=== PATIENT | male | born 1995 | race Caucasian/White ===

== ENCOUNTER 2016-08-03 09:21 | Emergency (ER) | payer OTHER, BC ==
[2016-08-03] MEDS ORDERED: ONDANSETRON 4 MG TAB.RAPDIS PO ONE (10:12)
[2016-08-03] MEDS ORDERED: MORPHINE SULFATE 10 MG/ML INJ IM ONE (10:12)
[2016-08-03] MEDS ORDERED: LIDOCAINE 1% INJ-PF (10 MG/ML) 30 ML SDV INJ ONE (10:14)
--- NOTE | 2016-08-03 10:16 | ER Document Report ---
ED Hand/Wrist Injury - General Mode of Arrival: Ambulatory Information source: Patient TRAVEL OUTSIDE OF THE [place] IN LAST 30 DAYS: No - HPI Patient complains to provider of: Finger injury Injury to: Small finger Onset: Just prior to arrival - General Chief Complaint: Finger Injury Stated Complaint: FINGER Injury Notes: Patient is a 21 year old male who presents to the emergency department complaining of an injury to his left pinky finger. Patient reports that he cut his finger while using a chop saw to cut a board. Patient states it is still painful. Patient does not remember his last tetanus shot. Patient is currently taking Depakote and Vyvance. Neurologist: Dr. Montgomery PCP: Dr. Sosa ([facility]) - Related Data Allergies/Adverse Reactions: amoxicillin Allergy (Verified 08/03/16 09:28) Past Medical History - General Information source: Patient - Social History Smoking Status: Current Every Day Smoker Chew tobacco use (# tins/day): No Frequency of alcohol use: None Drug Abuse: None Family History: Reviewed & Not Pertinent Patient has suicidal ideation: No Patient has homicidal ideation: No Neurological Medical History: Reports: Hx Seizures Psychiatric Medical History: Reports: Hx Attention Deficit Hyperactivity Disorder Review of Systems - Review of Systems Constitutional: No symptoms reported EENT: No symptoms reported Cardiovascular: No symptoms reported Respiratory: No symptoms reported Gastrointestinal: No symptoms reported Genitourinary: No symptoms reported Male Genitourinary: No symptoms reported Musculoskeletal: No symptoms reported Skin: See HPI, Lesions - left pinky Hematologic/Lymphatic: No symptoms reported Neurological/Psychological: No symptoms reported -: Yes All other systems reviewed and negative Physical Exam - Vital signs Interpretation: Normal - General General appearance: Appears well, Alert - HEENT Head: Normocephalic, Atraumatic - Respiratory Respiratory status: No respiratory distress - Extremities General lower extremity: Normal inspection Hand: Other - Longitudinal laceration extending from radial side of left little finger through the nail and running midline for 4 cm. Extension intact. Sensation intact. - Neurological Neuro grossly intact: Yes Cognition: Normal Orientation: AAOx4 Светлана Coma Scale Eye Opening: Spontaneous Светлана Coma Scale Verbal: Oriented Светлана Coma Scale Motor: Obeys Commands Светлана Coma Scale Total: 15 Speech: Normal - Psychological Associated symptoms: Normal affect, Normal mood - Skin Skin Temperature: Warm Skin Moisture: Dry Skin Color: Normal Course - Re-evaluation Re-evalutation: 08/03/16 11:45 PROCEEDURE: completion time 1145 Left 5th finger prepped with Sureclens. Anaesthetized with 4 mls 1% lidocaine MC block. There is a 4 cm long laceration running longitudinally over the dorsal finger starting just past the fingernail extending up to the PIP joint. The nail is completely lacerated along the middle of the nail with the laceration extending into the nail bed. There is about a 1 x 2 mm piece of the nail missing from the proximal ulnar side of the laceration. The laceration extends up over the dorsal finger but does not go into the extensor mechanism that I can ascertain. He does have good active extension at the DIP and PIP joints. The laceration was irrigated with 20 mL's of normal saline using a syringe and 25-gauge needle to direct pressure eye stream into the wound. No foreign debris was seen. The wounds were closed with 7 5-0 nylon sutures. One suture was placed in the fingertip to approximate the tip and edge of the nail bed beneath the nail. Sutures were placed through either side of the nail to approximate the nailbed. 4 sutures were placed along the wound on the dorsal finger to approximate the wound edges. Both wound edges suffered some tissue loss in that the laceration is shaped like a V. The wound was then dressed in a sterile fashion. (JUAN RIVERA) - Vital Signs Vital signs: Temp Pulse Resp BP Pulse Ox 97.7 F 90 16 127/79 H 100 08/03/16 09:28 08/03/16 09:28 08/03/16 09:28 08/03/16 09:28 08/03/16 09:28 ([facility] [facility]) (JUAN RIVERA) Discharge - Discharge Clinical Impression: Laceration of finger of left hand Qualifiers: Encounter type: initial encounter Qualified Code(s): S61.219A - Laceration without foreign body of unspecified finger without damage to nail, initial encounter Laceration of finger nail bed Qualifiers: Encounter type: initial encounter Qualified Code(s): S61.319A - Laceration without foreign body of unspecified finger with damage to nail, initial encounter Condition: Stable Disposition: HOME, SELF-CARE Additional Instructions: Hand Laceration: A laceration on the hand can present special problems. It may be difficult to keep the wound dry. Motion of the fingers can disturb the healing edges. Your work may involve exposure to damaging chemicals or water. Keep the wound clean and dry. If you can't keep the cut dry, undisturbed, and free of chemical exposure, please discuss this with the doctor. If any water or chemical gets onto the dressing, remove it, blot the wound dry, then apply a fresh bandage. Dressings should be changed every day. If you feel the stitches pulling as you move the hand, a splint or other form of protection is needed. If any signs of infection occur (swelling, redness, increasing tenderness, red streaks, tender lumps in the armpit, or fever), see the doctor immediately. KEEP THE WOUND DRESSING CLEAN AND DRY. CHANGE THE DRESSING IF IT BECOMES SOILED. TAKE THE MEDICATION PRESCRIBED. ELEVATE THE HAND ALL THE TIME. FOLLOW UP WITH DR. TORRES AT [facility] FOR SURGERY ON Saturday. CALL TODAY TO SCHEDULE AN APPOINTMENT TIME. RETURN TO THE EMERGENCY ROOM IF ANY NEW OR WORSENING SYMPTOMS. Prescriptions: Cephalexin Monohydrate [Keflex 500 mg Capsule] 500 mg PO QID #20 capsule Oxycodone HCl/Acetaminophen [Percocet 5-325 mg Tablet] 1 tab PO ASDIR PRN #15 tablet PRN Reason: Referrals: TONYA TORRES MD [ACTIVE STAFF] - 08/07/16 (CALL TODAY FOR A Saturday APPOINTMENT.) Scribe Attestation: 08/03/16 12:49 I personally performed the services described in the documentation, reviewed and edited the documentation which was dictated to the scribe in my presence, and it accurately records my words and actions. (JUAN RIVERA) Scribe Documentation - Scribe Written by Bong:: bong Villareal, 08/03/16, 1020 acting as scribe for :: Ant
[2016-08-03] MEDS ORDERED: CEPHALEXIN 250 MG CAPSULE PO ONE (11:47)
[2016-08-03] MEDS ORDERED: OXYCODONE-ACETAMINOPHEN 5-325 MG TABLET PO ONE (12:48)
[2016-08-03 13:04] VITALS: BP 133/87
== END 2016-08-03 13:05 | disposition home or self-care (01) ==
LOC: ER 09:21
PROC: 0HQGXZZ Repair Left Hand Skin, External Approach (ICD-10-PCS; principal; 2016-08-03)
DX: S61.219A Laceration without foreign body of unspecified finger without damage to nail, initial encounter (principal); S61.319A Laceration without foreign body of unspecified finger with damage to nail, initial encounter; F17.210 Nicotine dependence, cigarettes, uncomplicated; W45.8XXA Other foreign body or object entering through skin, initial encounter
CPT/HCPCS: 99283; 73140; 12042; S0119

== ENCOUNTER 2016-08-03 20:30 | Emergency (ER) | payer OTHER, BC ==
[2016-08-03 20:36] VITALS: BP 141/73
[2016-08-03] MEDS ORDERED: OXYCODONE-ACETAMINOPHEN 5-325 MG TABLET PO ONE (21:12)
== END 2016-08-04 00:58 | disposition left against medical advice (07) ==
LOC: ER 20:30
DX: Z53.9 Procedure and treatment not carried out, unspecified reason (principal); S61.217A Laceration without foreign body of left little finger without damage to nail, initial encounter; X58.XXXA Exposure to other specified factors, initial encounter

== ENCOUNTER → 2017-06-07 | Outpatient (CLI) | payer BC ==
--- NOTE | 2017-06-07 12:07 | RADIOLOGY REPORT (SQ) ---
EXAM DESCRIPTION: CT ABD/PELVIS COMBO COMPLETED DATE/TIME: 06/07/2017 11:49 am REASON FOR STUDY: R31.0 GROSS HEMATURIA R31.0 GROSS HEMATURIA COMPARISON: None. TECHNIQUE: CT scan of the abdomen and pelvis performed with and without intravenous contrast, and wi thout oral contrast. Contrasted imaging performed helical scanning technique and dynamic intravenous contrast injection. Images reviewed with lung, soft tissue, and bone windows. Reconstructed coronal a nd sagittal MPR images reviewed. Delayed images for evaluation of the urinary system also acquired. A ll images stored on PACS. All CT scanners at this facility use dose modulation, iterative reconstruction, and/or weight based d osing when appropriate to reduce radiation dose to as low as reasonably achievable (ALARA). [facility]: Dose Right [facility]: CareDose [facility]: Dose Right [facility]: Teradose 4D [facility]: Jalousier CONTRAST TYPE AND DOSE: contrast/concentration: Isovue 370.00 mg/ml; Total Contrast Delivered: 74.0 ml; Total Saline Delivered: 66.0 ml RENAL FUNCTION: Creatinine 0.9 RADIATION DOSE: CT Rad equipment meets quality standard of care and radiation dose reduction techniq ues were employed. CTDIvol: 9.0 mGy. DLP: 1417 mGy-cm. . LIMITATIONS: None. FINDINGS: NON-CONTRASTED IMAGIN mm obstructing calculus is identified at the level of the uterov esical junction on the left. POST-CONTRASTED IMAGING: LOWER CHEST: No significant findings. No nodules or infiltrates. LIVER: Normal size. No masses. No dilated ducts. SPLEEN: Normal size. No focal lesions. PANCREAS: No masses. No significant calcifications. No adjacent inflammation or peripancreatic fluid collections. Pancreatic duct not dilated. GALLBLADDER: No identified stones by CT criteria. No inflammatory changes to suggest cholecystitis. ADRENAL GLANDS: No significant masses or asymmetry. RIGHT KIDNEY AND URETER: No solid masses. No significant calcifications. No hydronephrosis or hyd roureter. LEFT KIDNEY AND URETER: No solid masses. No renal calculi are identified. Obstructing calculus at the level of the uterovesical junction on the left. There is hydronephrosis of the left kidney and dilatation of the left ureter to the level of the uterovesical junction. AORTA AND VESSELS: No aneurysm. No dissection. Renal arteries, SMA, celiac without stenosis. RETROPERITONEUM: No retroperitoneal adenopathy, hemorrhage or masses. BOWEL AND PERITONEAL CAVITY: No masses or inflammatory changes. No free fluid or peritoneal masses. APPENDIX: Not identified PELVIS: No mass. No free fluid. Normal bladder. ABDOMINAL WALL: No masses. No hernias. BONES: No significant or acute findings. OTHER: No other significant finding. IMPRESSION: Obstructing 4 mm in diameter calculus at the level of the uterovesical junction on the l eft. No renal calculi are identified. Other findings as noted above TECHNICAL DOCUMENTATION: JOB ID: [id number] Quality ID # [id number]: Final reports with documentation of one or more dose reduction techniques (e.g., Au tomated exposure control, adjustment of the mA and/or kV according to patient size, use of iterative reconstruction technique) 2010 [employer]- All Rights Reserved
== END ==
LOC: RAD 10:49
PROVIDERS: ATTEND Nurse Practitioner Pediatrics
DX: R31.0 Gross hematuria (principal); N13.2 Hydronephrosis with renal and ureteral calculous obstruction
CPT/HCPCS: 74178; 82565